=== PATIENT | female | born 1995 | race African-American/Black ===

== ENCOUNTER 2017-06-14 16:08 | Emergency (ER) | payer SELFPAY, MEDICAID ==
[2017-06-14 16:41] LABS: URINE HCG POC HCG NEGATIVE (Negative)
[2017-06-14 16:50] LABS: BILIRUBIN,URINE NEGATIVE (NEG); CLARITY,URINE CLEAR; COLOR,URINE YELLOW; GLUCOSE,URINE NEGATIVE (NEG); NITRITE,URINE NEGATIVE (NEG); PROTEIN,URINE NEGATIVE (NEG-TRACE); UROBILINOGEN,URINE 0.2 mg/dL (0.2 mg/dL)
[2017-06-14 16:58] LABS: BACTERIA,URINE MODERATE /HPF (0-FEW); RBC,URINE 0 /HPF (0-2); SQUAMOUS EPITHELIAL CELL,UR MOD /LPF
[2017-06-14] MEDS: AZITHROMYCIN 250 MG TABLET. PO (17:50)
[2017-06-14] MEDS: cefTRIAXone IM 250 MG VIAL IM (17:50)
[2017-06-14] MEDS: LIDOCAINE 1% PF 2 ML VIAL. INJ (17:51)
[2017-06-16 18:13] LABS: CHLAMYDIA PROBE Negative (Negative); GC PROBE Negative (Negative)
== END 2017-06-14 18:45 | disposition home or self-care (01) ==
LOC: ER 16:08
DX: N39.0 Urinary tract infection, site not specified (principal); N76.0 Acute vaginitis; B96.89 Other specified bacterial agents as the cause of diseases classified elsewhere; Z20.2 Contact with and (suspected) exposure to infections with a predominantly sexual mode of transmission
CPT/HCPCS: 81001; 81025; 87086; 87491; 87591; 96372; 99284-25; J0696; Q0111; Q0144

== ENCOUNTER 2017-08-23 14:32 | Emergency (ER) | payer SELFPAY ==
[2017-08-23 15:04] LABS: URINE HCG POC HCG POSITIVE (Negative)
[2017-08-23 15:27] LABS: BILIRUBIN,URINE NEGATIVE (NEG); CLARITY,URINE CLEAR; COLOR,URINE YELLOW; GLUCOSE,URINE NEGATIVE (NEG); NITRITE,URINE NEGATIVE (NEG); PH,URINE 6.5; PROTEIN,URINE >=300 mg/dL (NEG-TRACE)
[2017-08-23 15:42] LABS: BACTERIA,URINE 0 /HPF (0-FEW); HYALINE CASTS, URINE MANY /HPF; SQUAMOUS EPITHELIAL CELL,UR MANY /LPF
[2017-08-23] MEDS: ONDANSETRON ODT 4 MG TAB.RAPDIS. PO (15:50)
== END 2017-08-23 16:46 | disposition home or self-care (01) ==
LOC: ER 14:32
DX: R11.2 Nausea with vomiting, unspecified (principal); F12.10 Cannabis abuse, uncomplicated; Z33.1 Pregnant state, incidental
CPT/HCPCS: 81001; 81025; 87086; 99284; Q0162

== ENCOUNTER 2017-08-25 11:31 | Emergency (ER) | payer SELFPAY | END 2017-08-25 12:01 | disposition home or self-care (01) | LOC: ER 11:31 | DX: O21.0 Mild hyperemesis gravidarum (principal); O99.320 Drug use complicating pregnancy, unspecified trimester; F12.10 Cannabis abuse, uncomplicated; Z3A.00 Weeks of gestation of pregnancy not specified | CPT/HCPCS: 99283 ==

== ENCOUNTER 2017-09-19 17:46 | Emergency (ER) | payer SELFPAY ==
[2017-09-19] MEDS: IV NORMAL SALINE 1000ML BAG 1,000 ML IV ×2 (19:02→21:32)
[2017-09-19] MEDS: ONDANSETRON PF 4 MG/2 ML VIAL. IV (19:02)
[2017-09-19 20:49] LABS: BASO % 0 % (0-3); EOS % 0 % (0-3); HEMATOCRIT 34.3 % (36.0-47.0); HEMOGLOBIN 11.7 g/dL (12.0-15.5); LYMPH # 0.9 x10^3/uL (1.0-4.8); LYMPH % 7 % (24-48); MEAN CORPUSCULAR HEMOGLOBIN 29 pg (25-35); MEAN CORPUSCULAR HGB CONC 34 g/dL (31-37); MEAN CORPUSCULAR VOLUME 85 fL (79-100); MONO # 0.7 x10^3/uL (0.0-1.1); MONO % 5 % (0-9); NEUT # 12.5 x10^3uL (1.8-7.7); NEUT % 88 % (31-73); PLATELET COUNT 309 x10^3/uL (140-400); RED BLOOD COUNT 4.03 x10^6/uL (3.50-5.40); RED CELL DISTRIBUTION WIDTH 13.4 % (11.5-14.5); WHITE BLOOD COUNT 14.1 x10^3/uL (4.0-11.0)
[2017-09-19 20:55] LABS: ADD MAN DIFF? YES
[2017-09-19 21:01] LABS: ANION GAP 10 (6-14); BLOOD UREA NITROGEN 9 mg/dL (7-20); BUN/CREATININE RATIO 13 (6-20); CALCIUM 8.1 mg/dL (8.5-10.1); CARBON DIOXIDE 24 mmol/L (21-32); CHLORIDE 104 mmol/L (98-107); CREATININE 0.7 mg/dL (0.6-1.0); GFR 129.1; GLUCOSE 80 mg/dL (70-99); POTASSIUM 3.8 mmol/L (3.5-5.1); SODIUM 138 mmol/L (136-145)
[2017-09-19 21:07] LABS: ALBUMIN 3.3 g/dL (3.4-5.0); ALBUMIN/GLOBULIN RATIO 0.9 (1.0-1.7); ALK PHOS 51 U/L (46-116); ALT (SGPT) 21 U/L (14-59); AST (SGOT) 12 U/L (15-37); TOTAL BILIRUBIN 0.3 mg/dL (0.2-1.0); TOTAL PROTEIN 6.8 g/dL (6.4-8.2)
[2017-09-19 21:33] LABS: % BANDS 1 % (0-9); % BASOS 2 % (0-3); % LYMPHS 11 % (24-48); % MONOS 7 % (0-10); % SEGS 79 % (35-66); PLT ESTIMATE ADEQUATE (ADEQUATE)
== END 2017-09-19 22:45 | disposition home or self-care (01) ==
LOC: ER 17:46
DX: O21.1 Hyperemesis gravidarum with metabolic disturbance (principal); O99.321 Drug use complicating pregnancy, first trimester; F12.10 Cannabis abuse, uncomplicated; Z3A.09 9 weeks gestation of pregnancy
CPT/HCPCS: 36415; 80053; 85007; 85025; 96361; 96374; 99285-25; J2405; J7030

== ENCOUNTER 2017-09-20 21:39 | Inpatient (IN) | payer SELFPAY ==
[2017-09-20 22:13] LABS: BILIRUBIN,URINE NEGATIVE (NEG); CLARITY,URINE CLEAR; COLOR,URINE YELLOW; GLUCOSE,URINE NEGATIVE (NEG); NITRITE,URINE NEGATIVE (NEG); PROTEIN,URINE NEGATIVE (NEG-TRACE); UROBILINOGEN,URINE 0.2 mg/dL (0.2 mg/dL)
[2017-09-20 22:18] LABS: ADD MAN DIFF? NO
[2017-09-20 22:20] LABS: BASO # 0.1 x10^3/uL (0.0-0.2); BASO % 0 % (0-3); EOS # 0.1 x10^3/uL (0.0-0.7); EOS % 1 % (0-3); HEMATOCRIT 34.7 % (36.0-47.0); HEMOGLOBIN 12.2 g/dL (12.0-15.5); LYMPH # 1.3 x10^3/uL (1.0-4.8); LYMPH % 10 % (24-48); MEAN CORPUSCULAR HEMOGLOBIN 30 pg (25-35); MEAN CORPUSCULAR HGB CONC 35 g/dL (31-37); MEAN CORPUSCULAR VOLUME 84 fL (79-100); MONO # 0.7 x10^3/uL (0.0-1.1); MONO % 5 % (0-9); NEUT # 11.2 x10^3uL (1.8-7.7); NEUT % 84 % (31-73); PLATELET COUNT 300 x10^3/uL (140-400); RED BLOOD COUNT 4.12 x10^6/uL (3.50-5.40); RED CELL DISTRIBUTION WIDTH 13.5 % (11.5-14.5); WHITE BLOOD COUNT 13.3 x10^3/uL (4.0-11.0)
[2017-09-20 22:26] LABS: BACTERIA,URINE MODERATE /HPF (0-FEW); RBC,URINE 0 /HPF (0-2); SQUAMOUS EPITHELIAL CELL,UR MANY /LPF
[2017-09-20] MEDS: METOCLOPRAMIDE HCL 10 MG/2 ML VIAL. IV (22:26)
[2017-09-20] MEDS: IV NORMAL SALINE 1000ML BAG 1,000 ML IV (22:26)
[2017-09-20] MEDS: diphenhydrAMINE 50 MG/ML VIAL IVP (22:26)
[2017-09-20 22:28] LABS: ANION GAP 13 (6-14); BLOOD UREA NITROGEN 7 mg/dL (7-20); CALCIUM 8.5 mg/dL (8.5-10.1); CARBON DIOXIDE 23 mmol/L (21-32); CHLORIDE 101 mmol/L (98-107); CREATININE 0.8 mg/dL (0.6-1.0); GFR 110.7; GLUCOSE 80 mg/dL (70-99); POTASSIUM 3.4 mmol/L (3.5-5.1); SODIUM 137 mmol/L (136-145)
[2017-09-21] MEDS: IV DEXTROSE 5 %-0.45 % NACL 1,000 ML IV ×3 (00:07→19:44)
[2017-09-21] MEDS: ONDANSETRON PF 4 MG/2 ML VIAL. IV ×4 (00:30→21:34)
[2017-09-21] MEDS: MAGNESIUM HYDROXIDE 2,400 MG/30 ML ORAL.SUSP. PO (08:23)
[2017-09-22] MEDS: ONDANSETRON PF 4 MG/2 ML VIAL. IV ×3 (03:57→17:49)
[2017-09-22] MEDS: IV DEXTROSE 5 %-0.45 % NACL 1,000 ML IV ×2 (03:58→11:51)
[2017-09-22] MEDS: PROMETHAZINE 12.5 MG TABLET. PO (09:29)
[2017-09-22] MEDS: ONDANSETRON IV (20:01)
[2017-09-22] MEDS: DEXTROSE IV (20:01)
[2017-09-22] MEDS: NACL IV (20:01)
[2017-09-23] MEDS: NACL IV (02:46)
[2017-09-23] MEDS: DEXTROSE IV (02:46)
[2017-09-23] MEDS: ONDANSETRON IV ×3 (02:46→16:55)
[2017-09-23] MEDS: PROMETHAZINE 12.5 MG TABLET. PO ×2 (03:43→17:23)
[2017-09-23] MEDS: NORMAL SALINE IV ×2 (12:51→16:55)
== END 2017-09-23 20:20 | disposition home or self-care (01) | DRG 781 ==
LOC: 3 NORTH 09-21 00:26 → ER 21:39 → 3 NORTH 22:42
DX: O21.0 Mild hyperemesis gravidarum (principal); F12.90 Cannabis use, unspecified, uncomplicated; R82.4 Acetonuria; Z91.018 Allergy to other foods; R19.7 Diarrhea, unspecified; Z3A.01 Less than 8 weeks gestation of pregnancy
CPT/HCPCS: 36415; 80048; 81001; 85025; 87086; 96361; 96374; 96375; 99285-25; J1200; J2405; J2765; J7030; Q0169

== ENCOUNTER 2019-06-22 10:52 | Emergency (ER) | payer OTHER ==
[2017-09-23 18:05] VITALS: BP 109/70
[~2019-06-22 10:52] MED LIST: METR500T PO; NITR100C62 PO; ONDA4TAB12 PO; PHEN-318 PO; PROM12.58 PO; PROM25TA10 PO; SULF1TAB24 PO
[2019-06-22] MEDS ORDERED: CEPH-264 PO (20:11)
[2019-06-22] MEDS ORDERED: ONDA4TAB12 PO (20:26)
== END 2019-06-22 11:58 | disposition left against medical advice (07) ==
LOC: ER 10:52
DX: M54.5 Low back pain (principal); Z53.21 Procedure and treatment not carried out due to patient leaving prior to being seen by health care provider

== ENCOUNTER 2019-06-22 17:48 | Emergency (ER) | payer OTHER ==
[~2019-06-22] VITALS: Ht 170.2 cm; Wt 73.5 kg
[2019-06-22 19:14] VITALS: BP 128/63
[2019-06-22 19:47] LABS: BILIRUBIN,URINE NEGATIVE (NEG); CLARITY,URINE CLEAR; COLOR,URINE YELLOW; NITRITE,URINE NEGATIVE (NEG); PH,URINE 5.5; PROTEIN,URINE 30 mg/dL (NEG-TRACE); UROBILINOGEN,URINE 0.2 mg/dL (0.2 mg/dL)
[2019-06-22 19:58] LABS: SQUAMOUS EPITHELIAL CELL,UR MANY /LPF
[2019-06-22 19:59] LABS: BACTERIA,URINE MODERATE /HPF (0-FEW); RBC,URINE 0 /HPF (0-2); WBC,URINE >40 /HPF (0-4)
[2019-06-22] MEDS ORDERED: CEPH-264 PO (20:11)
--- NOTE | 2019-06-22 20:12 | PHYS DOC ---
Past Medical History Past Medical History: No Pertinent History Past Surgical History: No Surgical History Alcohol Use: None Drug Use: Marijuana Adult General Chief Complaint Chief Complaint: BACK PAIN - NO INJURY HPI HPI Patient is a 24 year old female who presents with low back pain and generalized lower [place] cramping that comes and goes. She is also having burning with urination and urinary frequency. She states she vomited 2 today. She denies any fever. Review of Systems Review of Systems GI: Generalized abdominal pain, nausea, vomiting, denies bloody stools or diarrhea [] : dysuria or hematuria [] Musculoskeletal: low back pain or joint pain [] All other systems were reviewed and found to be within normal limits, except as documented in this note. Allergies Allergies Allergies Coded Allergies Type Severity Reaction Last Updated Verified strawberry Allergy Intermediate 09/20/17 Yes Physical Exam Physical Exam Constitutional: Well developed, well nourished, no acute distress, non-toxic appearance. [] HENT: Normocephalic, atraumatic, bilateral external ears normal, oropharynx mo ist, no oral exudates, nose normal. [] Eyes: PERRLA, EOMI, conjunctiva normal, no discharge. [] Neck: Normal range of motion, no tenderness, supple, no stridor. [] Cardiovascular:Heart rate regular rhythm, no murmur [] Lungs & Thorax: Bilateral breath sounds clear to auscultation [] Abdomen: Bowel sounds normal, soft, no tenderness, no masses, no pulsatile masses. [] Skin: Warm, dry, no erythema, no rash. [] Back: No tenderness, no CVA tenderness. [] Extremities: No tenderness, no cyanosis, no clubbing, ROM intact, no edema. [] Neurologic: Alert and oriented X 3, normal motor function, normal sensory function, no focal deficits noted. [] Psychologic: Affect normal, judgement normal, mood normal. Normal Physical Exam[] Current Patient Data Vital Signs Vital Signs Date Time Temp Pulse Resp B/P (MAP) Pulse Ox O2 Delivery O2 Flow Rate FiO2 06/22/19 19:14 97.4 91 16 128/63 (84) 100 Room Air 97.4 Lab Values Laboratory Tests Test 06/22/19 19:00 06/22/19 19:39 Urine Collection Type Unknown Urine Color Yellow Urine Clarity Clear Urine pH 5.5 Urine Specific Floral 1.025 Urine Protein 30 mg/dL (NEG-TRACE) Urine Glucose (UA) Negative mg/dL (NEG) Urine Ketones (Stick) Negative mg/dL (NEG) Urine Blood Large (NEG) Urine Nitrite Negative (NEG) Urine Bilirubin Negative (NEG) Urine Urobilinogen Dipstick 0.2 mg/dL (0.2 mg/dL) Urine Leukocyte Esterase Small (NEG) Urine RBC 0 /HPF (0-2) Urine WBC >40 /HPF (0-4) Urine Squamous Epithelial Cells Many /LPF Urine Bacteria Moderate /HPF (0-FEW) Urine Mucus Marked /LPF POC Urine HCG, Qualitative Hcg negative (Negative) EKG EKG [] Radiology/Procedures Radiology/Procedures [] Course & Med Decision Making Course & Med Decision Making Alert and oriented. Speaks in full clear sentences. Ambulatory with a steady gait. Denies any injury to her back. No CVA tenderness. Abdomen is soft and nontender. Afebrile. Denies sexual transmitted disease concerns. Denies vaginal discharge. Denies injury to her back. No back tenderness with palpation to her spine. Patient has a urinary tract infection. Dragon Disclaimer Dragon Disclaimer This electronic medical record was generated, in whole or in part, using a voice recognition dictation system. Departure Departure Impression: Primary Impression: UTI (urinary tract infection) Disposition: 01 HOME, SELF-CARE Condition: STABLE Referrals: NO PCP (PCP) Patient Instructions: Urinary Tract Infection Additional Instructions: Follow up with primary care provider. Take medications as prescribed. Drink plenty of fluids. Scripts Ondansetron (ONDANSETRON ODT) 4 Mg Tab.rapdis 1 TAB PO PRN Q6-8HRS, #16 TAB Prov: LON GARZA APRN 06/22/19 Cephalexin (KEFLEX) 500 Mg Capsule 1 CAP PO BID for 7 Days, #14 CAP 0 Refills Prov: LON GARZA APRN 06/22/19 Problem Qualifiers Primary Impression: UTI (urinary tract infection) Urinary tract infection type: site unspecified Hematuria presence: without hematuria Qualified Codes: N39.0 - Urinary tract infection, site not s pecified LON GARZA APRN Jun 22, 2019 20:12
[2019-06-22] MEDS ORDERED: ONDA4TAB12 PO (20:26)
== END 2019-06-22 20:32 | disposition home or self-care (01) ==
LOC: ER 17:48
DX: N39.0 Urinary tract infection, site not specified (principal); Z91.018 Allergy to other foods
CPT/HCPCS: 81001; 81025; 87086; 99284

== ENCOUNTER 2019-11-28 19:44 | Emergency (ER) | payer OTHER ==
[~2019-11-28 19:44] MED LIST changes: +CEPH-264 PO
== END 2019-11-28 20:10 | disposition left against medical advice (07) ==
LOC: ER 19:44
DX: L73.1 Pseudofolliculitis barbae (principal); Z53.21 Procedure and treatment not carried out due to patient leaving prior to being seen by health care provider

== ENCOUNTER 2019-12-17 17:15 | Emergency (ER) | payer OTHER | END 2019-12-17 17:54 | disposition left against medical advice (07) | LOC: ER 17:15 | DX: R11.2 Nausea with vomiting, unspecified (principal); R19.7 Diarrhea, unspecified; Z53.21 Procedure and treatment not carried out due to patient leaving prior to being seen by health care provider ==